=== PATIENT | female | born 1960 | race Caucasian/White ===

== ENCOUNTER 2016-03-20 01:31 | Emergency (ER) | payer OTHER ==
[2016-03-20] MEDS ORDERED: OPTIRAY 350 100 ML VIAL HMH IV ONE (01:32)
[2016-03-20] MEDS ORDERED: SODIUM CHLORIDE 0.9% 1,000 ML ONE ×2 (02:35→03:20)
[2016-03-20] MEDS ORDERED: HYOSCYAMINE 0.5 MG/ML AMP 1 ML ONE (03:19)
[2016-03-20] MEDS ORDERED: DIPHENOXYLATE/ATROP TAB 2.5 MG TAB ONE (03:20)
[2016-03-20] MEDS ORDERED: ONDANSETRON 4 MG VIAL ONE (03:21)
== END 2016-03-20 05:30 | disposition home or self-care (01) ==
LOC: ER 01:31
DX: N30.90 Cystitis, unspecified without hematuria (principal); R19.7 Diarrhea, unspecified; Z86.718 Personal history of other venous thrombosis and embolism
CPT/HCPCS: 36415; 74177; 80053; 81001; 83630; 83690; 85025; 87045; 87046; 87077; 87088; 87177; 87186; 87493; 87804; 96361; 96374; 96375; 99285; J2405; Q9967